=== PATIENT | male | born 1945 | race Caucasian/White ===

== ENCOUNTER → 2018-05-26 | Outpatient (CLI) | payer OTHER ==
[~2018-05-26] VITALS: Ht 182.9 cm; Wt 100.7 kg
[~2018-05-26] MED LIST: CIALIS20 MG PO; FLOMAX0.4 MG PO; LIPITOR 20 MG T20 M1 PO; MOBIC15 MG PO; VIAGRA50 MG PO
--- NOTE | ~2018-05-26 | HPC ---
[facility] [address] [place] [address] PAIN MANAGEMENT CONSULTATION Name: ED CARRIZALES Room #: REG [facility].#: [id number] Admission: 05/26/18 Attend Phys: Anand Hugo DO Discharge: Date of : 47 Report #: [id number] THIS REPORT FOR: //name// CC: Phan Hugo DATE OF SERVICE: 05/26/2018 CHIEF COMPLAINT: Low back pain, bilateral lower extremity pain and paresthesias. HISTORY OF PRESENT ILLNESS: As you know, the patient is a pleasant 72-year-old male who has been referred to our service for low back pain, bilateral lower extremity pain with paresthesias. The patient states pain began about 3 months ago. He denies any injury or trauma. States pain begins in the low back, radiates to the buttock and down the legs to just below the knees. He states when he moves his knees, his pain is intense, but does not appear to be related to the knee itself. The patient has sought evaluation through his primary care physician who referred the patient to our clinic to trial epidural injections to address suspected lumbar radiculopathy. The patient describes pain as continuous. He uses further descriptors of aching, numbness and tingling. Places current pain score 4/10, daily average at 5/10, worst pain has been is 8/10. The patient states that sitting, bending over tends to exacerbate symptoms; lying down tends to improve pain. He has been referred to our clinic for epidural injections under fluoroscopic guidance to address suspected lumbar radiculopathy. PAST MEDICAL HISTORY: 1. Benign prostatic hypertrophy. 2. Erectile dysfunction. 3. Osteoarthritis. 4. Dyslipidemia. PAST SURGICAL HISTORY: None. SOCIAL HISTORY: The patient denies tobacco, IV or illicit drug use. Admits to 2 alcohol beverages per week. 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 He is working, not receiving workmen's compensation nor is he trying to obtain disability benefit. He is not in litigation in regards to pain. He is unaccompanied today. REVIEW OF SYSTEMS: Positive for tinnitus, frequent urination, nocturia, low back pain, bilateral lower extremity pain and paresthesias, bilateral knee pain, erectile dysfunction, dyslipidemia. All other review of systems negative per [facility] [address] [place] [address] PAIN MANAGEMENT CONSULTATION Name: ED CARRIZALES Room #: REG [facility].#: [id number] Admission: 05/26/18 Attend Phys: Anand Hugo DO Discharge: Date of : 47 Report #: [id number] 12-point review of systems and those listed in history of present illness. Pain impact score 57/70 indicating severe interference of daily activities secondary to pain. ALLERGIES: No known drug allergies. CURRENT MEDICATIONS: Tamsulosin 0.4 mg once a day, Viagra 50 mg p.r.n., meloxicam 15 mg per day, Cialis 20 mg p.r.n., atorvastatin 20 mg per day. IMAGING: X-ray lumbar spine obtained, 04/15/2018, shows multilevel lumbar degenerative changes of facet arthrosis, most pronounced at the L5-S1. X-ray of the bilateral knees shows mild bilateral knee osteoarthritis. 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 PQRS: The patient has osteoarthritis of the bilateral hips, bilateral knees. He has no history of rheumatoid arthritis. He is not a fall risk, has not had a fall in the last 3 months. He is not on blood thinners. He is not treated for hypertension. He is not on opioids. He has a very low risk assessment tool for opioid misuse. Pain impact score is rated at 57/70, severe interference. PHYSICAL EXAMINATION: VITAL SIGNS: Blood pressure 124/84, pulse is 89, respiratory rate 15, unlabored. The patient is 97% on room air. Height 6 feet tall, weight 222 pounds, BMI calculated 30.1. GENERAL: Well-developed, well-nourished, well-hydrated 72-year-old male appearing his stated age. He is in no acute distress, awake, alert and oriented x 3. Current pain score is rated 4-5/10. HEENT: Normocephalic, atraumatic. Pupils equal, round, reactive to light. Extraocular muscles are intact. Sclerae nonicteric without injection. NEUROLOGIC: Cranial nerves 2-12 grossly intact. Speech is fluent. LUNGS: Clear, no wheeze, rhonchi or rales. CARDIOVASCULAR: Regular. No appreciable gallop, no rub. ABDOMEN: Soft, nontender, nondistended. EXTREMITIES: Show no clubbing, no cyanosis, no edema. MUSCULOSKELETAL: Seated straight leg raising negative. Supine straight leg raising mildly positive. YAIR test negative. Modified Gaenslen's positive for axial low back pain. Ankle clonus negative. Babinski is negative. Gait is normal, stance slightly forward flexed to lumbar spine, loss of lordotic curvature. Deep tendinous reflexes are symmetrical in patella and Achilles. [address] [address] PAIN MANAGEMENT CONSULTATION Name: ED CARRIZALES Room #: REG [facility]#: [id number] Admission: 05/26/18 Attend Phys: Anand Hugo DO Discharge: Date of : 47 Report #: [id number] ASSESSMENT: 1. Lumbar radiculopathy. 2. Lumbosacral spondylosis with radiculopathy. 3. Bilateral osteoarthritis of the hips, left greater than right. 4. Bilateral osteoarthritis of the knees. 5. Chronic intractable pain. PLAN: 1. The patient has been referred to our service for evaluation for a suspected lumbar radiculopathy. Primary care team has requested an epidural injection. The patient does show mild symptoms of lumbar radicular symptoms, but does show more significant pain generation from the left hip. We have discussed with the patient the findings of his x-ray imaging, reviewed them in totality, taking over 20 minutes of time reviewing these imaging studies. The patient also came with an MRI, which we reviewed in its entirety as a part of this review process. After the review, we discussed treatment options for a suspected lumbar radiculopathy with patient. We discussed the following treatment options: We discussed physical therapy, stretching exercises, core strengthening as a part of the treatment protocol. We also discussed medication management, adding neuropathic pain medications in the form of either gabapentin, Lyrica, nortriptyline or amitriptyline. We discussed the requested epidural injection under fluoroscopic guidance. We discussed surgical options. After reviewing risks and benefits of all proposed treatment options, the patient chose to begin with an epidural injection under fluoroscopic guidance. The patient was advised of the risks and benefits of a lumbar epidural injection. These risks include but are not necessarily limited to bleeding, bruising, infection, worsening pain, no relief of pain and also risk of temporary or permanent muscle weakness, temporary or permanent nerve damage, possible paralysis and . The patient states he understood and wished to proceed. 2. No medication changes made at today's visit. The patient will continue current medical therapy as previously prescribed. 3. We wish to thank Dr. Copeland for the referral of the patient to our clinic. We will keep you apprised of his response to treatment as we address suspected lumbar radiculopathy. Again, we wish to thank you for the opportunity to see the patient in consultation. PROCEDURE NOTE DESCRIPTION OF PROCEDURE: L5-S1 interlaminar epidural steroid injection under fluoroscopic guidance. This is the first procedure of the first series that the patient is undergoing. [address] [address] PAIN MANAGEMENT CONSULTATION Name: ED CARRIZALES Room #: REG [facility]#: [id number] Admission: 05/26/18 Attend Phys: Anand Hugo DO Discharge: Date of : 47 Report #: [id number] After obtaining written consent, the patient was taken back to the fluoroscopy suite, placed in a prone position with pillow under the abdomen to decrease lumbar lordosis. The skin overlying the lumbosacral area was then prepped and draped in aseptic fashion. The L5-S1 vertebral interspace was then identified by AP fluoroscopy. The skin and subcutaneous tissue overlying the target site of injection was anesthetized with 3 mL 1% lidocaine. A 20-gauge 3-1/2 inches Tuohy needle was then advanced under fluoroscopic guidance towards the epidural space using a paramedian approach. The epidural space was identified using loss of resistance to air technique. After negative aspiration for heme or cerebrospinal fluid, a total of 1 mL of Omnipaque was injected. A lumbar epidurogram was confirmed using both AP and lateral fluoroscopy. After negative aspiration for heme or cerebrospinal fluid, 5 mL of a solution containing 2 mL 40 mg per mL, 80 mg total triamcinolone, 3 mL of lidocaine 1% was injected in increments. Contrast spread was noted posterior epidural space. The needle was then retracted approximately half way and needle tract flushed with 1 mL of 1% lidocaine. Needle was then removed. There were no apparent sensory or motor deficits in the lower extremity following the procedure. A sterile bandage was placed over the injection site. The heart rate, pulse, oximetry and blood pressure were continuously monitored after the procedure. There were no apparent complications. The patient tolerated the procedure well and was carefully escorted to the recovery room in stable condition. There were no apparent complications. After meeting discharge criteria, the patient was then discharged home. By: [id number] Anand Hugo DO /nt
[2018-05-26 09:07] VITALS: BP 124/84
== END | disposition home or self-care (01) ==
LOC: PAIN 05-25 10:10
DX: M47.27 Other spondylosis with radiculopathy, lumbosacral region (principal); M16.0 Bilateral primary osteoarthritis of hip; M17.0 Bilateral primary osteoarthritis of knee; G89.29 Other chronic pain; N40.0 Benign prostatic hyperplasia without lower urinary tract symptoms; M19.90 Unspecified osteoarthritis, unspecified site; E78.5 Hyperlipidemia, unspecified; Z98.890 Other specified postprocedural states; Z79.899 Other long term (current) drug therapy

== ENCOUNTER → 2018-06-09 | Outpatient (CLI) | payer OTHER ==
[~2018-06-09] VITALS: Ht 182.9 cm; Wt 100.7 kg
--- NOTE | ~2018-06-09 | HPC ---
[facility] [address] [place] [address] PAIN MANAGEMENT CONSULTATION Name: ED CARRIZALES Room #: REG [facility]#: [id number] Admission: 06/09/18 Attend Phys: Ernesto Blanco MD Discharge: Date of : 47 Report #: [id number] THIS REPORT FOR: //name// CC: Phan Blanco DATE OF SERVICE: 06/09/2018 FOLLOWUP COMPLAINT: Here for another injection. The last one improved things by greater than 50%. I am going to [place]. FOLLOWUP HISTORY: The patient is a 72-year-old gentleman who has been seen in the pain clinic by Dr. Anand Hugo. The patient has had some pain and discomfort with pain radiating down into his legs. He noted pain begun approximately 3 months ago. He has not had any trauma. He underwent an epidural steroid injection at the last visit. He returns today indicating that his pain has improved. 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 He has had no complications. The pain was primarily in the low back area. He feels greater than 90% improved. At this juncture, he is heading to [place] with his . They are going to be hiking. There are going to be in a cabin. He would like to undergo another injection with the hope that his pain, which continue to be well controlled. He has returned today for a "second shot." ALLERGIES: No known drug allergies. CURRENT MEDICATIONS: Flomax 0.4 mg, Viagra p.r.n., Meloxicam 15 mg, Cialis 20 mg, and Lipitor 20 mg. PAST MEDICAL HISTORY: 1. Benign prostatic hypertrophy. 2. Erectile dysfunction. 3. Osteoarthritis. 4. Dyslipidemia. 5. History of lumbar radiculopathy. PAIN CLINIC ASSESSMENT: 1. History of osteoarthritis. The patient has arthritic changes in his hips. 2. The patient has not been treated for rheumatoid arthritis. 3. Height 6 feet 0 inches, weight 222 pounds, BMI is 30. 4. Vital signs: Blood pressure 133/82, pulse 65, respiratory rate 16, room air saturation is 100%. 5. Pain intensity 11/25. 6. Fall risk. The patient has not fallen in the last 3 months. 7. Blood thinner. The patient is not on blood thinning medication. 8. Hypertension. The patient has not been treated for hypertension. [address] [address] PAIN MANAGEMENT CONSULTATION Name: ED CARRIZALES Room #: REG CLI [facility]#: [id number] Admission: 06/09/18 Attend Phys: Ernesto Blanco MD Discharge: Date of : 47 Report #: [id number] 9. Opioid therapy greater than 6 weeks. The patient is not on opioid medication. 10. Risk assessment tool. 11. Functional assessment tool. 12. Recreational drug use. The patient denies use of recreational drugs. 13. Tobacco: The patient is a former smoker, does not smoked at this juncture. 14. Alcohol. The patient occasionally uses alcoholic beverages. PHYSICAL EXAMINATION: GENERAL: The patient is a well-developed, well-nourished white male. He appears his stated age. He is alert and oriented x 3. Affect is appropriate. Speech is fluent. Hearing is within normal limits. HEENT: Normocephalic, atraumatic. Extraocular eye muscles intact. 14. Nonicteric sclerae. NECK: Without JVD or adenopathy. HEART: Regular rate. LUNGS: Clear to auscultation without rhonchi or rales. ABDOMEN: Nontender. EXTREMITIES: No clubbing, cyanosis or edema. MUSCULOSKELETAL: Without kyphosis, scoliosis or lordosis. The patient has some pain and discomfort in his leg with positive straight leg raise on the left. Deep tendon reflexes are symmetrical. ASSESSMENT: 1. Lumbar radiculopathy. 2. Lumbar spondylosis with radiculopathy. 3. Bilateral osteoarthritis of the hips, left greater than right. 4. Bilateral osteoarthritis of the knees. 5. Chronic intractable pain. 6. Erectile dysfunction. 7. Dyslipidemia. 8. Benign prostatic hypertrophy. RECOMMENDATIONS: We discussed treatment options with the patient. Risks and benefits of an epidural steroid injection were again reviewed. Possible complications of the procedure were discussed, they could include but are not limited to infection, increased muscle soreness, headache, bleeding, worsening of pain, and spinal headache. The patient would like to proceed. PROCEDURE NOTE: The patient was assisted in getting on the examination table. His back was sterilely prepped with a Betadine solution. A 0.25% bupivacaine was infiltrated at the L5-S1 area. This was performed using fluoroscopy, using anterior and posterior as well as a lateral view. After appropriate placement, a total of 2 mL of 0.25% bupivacaine was then injected and 80 mg Depo-Medrol, 40 mg triamcinolone and 2 mL of bupivacaine were injected. The patient tolerated the procedure well. There were no complications. He will follow up in the [address] [address] PAIN MANAGEMENT CONSULTATION Name: ED CARRIZALES Room #: [facility]#: [id number] Admission: 06/09/18 Attend Phys: Ernesto Blanco MD Discharge: Date of : 47 Report #: [id number] future as needed. We would like to thank you for letting us participate in his care. We hope he continues to improve. <ELECTRONICALLY SIGNED> By: Ernesto Blanco MD 06/11/18 [id number] Ernesto Blanco MD /nt
[2018-06-09 08:45] VITALS: BP 133/82
== END | disposition home or self-care (01) ==
LOC: PAIN 06:24
DX: M47.26 Other spondylosis with radiculopathy, lumbar region (principal); M17.0 Bilateral primary osteoarthritis of knee; M16.0 Bilateral primary osteoarthritis of hip; G89.29 Other chronic pain; E78.5 Hyperlipidemia, unspecified; N40.0 Benign prostatic hyperplasia without lower urinary tract symptoms; N52.9 Male erectile dysfunction, unspecified; Z79.891 Long term (current) use of opiate analgesic; Z87.891 Personal history of nicotine dependence; Z79.899 Other long term (current) drug therapy

== ENCOUNTER → 2021-04-24 | Outpatient (CLI) | payer OTHER ==
[~2021-04-24] VITALS: Ht 182.9 cm; Wt 99.8 kg
[~2021-04-24] MED LIST changes: +CRESTOR40 MG PO; +ZETIA10 MG PO
[2021-04-24 08:45] VITALS: BP 124/88
== END | disposition home or self-care (01) ==
LOC: PAIN 06:49
PROVIDERS: ATTEND Anesthesiology Pain Medicine
DX: M54.16 Radiculopathy, lumbar region (principal); G89.29 Other chronic pain; E78.5 Hyperlipidemia, unspecified; N40.0 Benign prostatic hyperplasia without lower urinary tract symptoms; Z98.890 Other specified postprocedural states; Z79.899 Other long term (current) drug therapy; Z85.820 Personal history of malignant melanoma of skin